=== PATIENT | female | born 1985 | race Hispanic/Latino ===

== ENCOUNTER 2020-03-12 08:30 | Observation (INO) | payer OTHER ==
[2020-03-08 15:16] LABS: BASOPHILS % (AUTO) 0.6 % (0.0-5.0); EOSINOPHILS % (AUTO) 2.3 % (0.0-8.0); HEMATOCRIT 39.3 % (36-48); LYMPHOCYTES % (AUTO) 42.6 % (21.0-51.0); MEAN CORPUSCULAR HGB CONC 33.1 g/dL (32.0-36.0); MEAN CORPUSCULAR VOLUME 81.5 fL (79-99); MONOCYTES % (AUTO) 6.4 % (3.0-13.0); NEUTROPHILS % (AUTO) 47.9 % (40.0-77.0); PLATELET COUNT (AUTO) 220 K/uL (130-400); RED BLOOD CELL COUNT(AUTO) 4.82 MIL/uL (4.00-5.50); RED CELL DISTRIBUTION WIDTH 13.2 % (11.0-15.5); WHITE BLOOD COUNT (AUTO) 5.2 K/uL (4.8-10.8)
[2020-03-11 09:20] VITALS: BP 164/74
[~2020-03-12] VITALS: Ht 167.6 cm; Wt 108.9 kg
[2020-03-12] VITALS (23 sets, daily range): BP systolic 105–141; BP diastolic 51–86
[~2020-03-12 08:30] MED LIST: CEFAZOLIN 3GM /D5W 100ML 100 ML IV SCH; LACTATED RINGERS 1000ML 1,000 ML IV ONE
[2020-03-12] MEDS ORDERED: LIDOCAINE PF 2% 5ML ABBOJECT ONE (09:26)
[2020-03-12] MEDS ORDERED: MIDAZOLAM HCL 1 MG/ML 2ML VIAL ONE (09:27)
[2020-03-12] MEDS ORDERED: PROPOFOL 10 MG/ML 20ML VIAL IV ONE (09:27)
[2020-03-12] MEDS: CEFAZOLIN SODIUM 1 GM VIAL ONE ×2 (09:27→11:02)
[2020-03-12] MEDS ORDERED: FENTANYL CITRATE PF 50 MCG/1 ML 2ML VIAL ONE (09:27)
[2020-03-12] MEDS ORDERED: DEXAMETHASONE SOD PHOSPHATE 4 MG/ML 1ML VIAL ONE (10:47)
[2020-03-12] MEDS ORDERED: SUCCINYLCHOLINE CHLORIDE 20 MG/ML 10 ML VIAL ONE (10:47)
[2020-03-12] MEDS ORDERED: ONDANSETRON HCL 4 MG/2 ML VIAL ONE (10:48)
[2020-03-12] MEDS ORDERED: CALDOLOR 800MG+NS 250ML 250 ML IV ONE (11:21)
[2020-03-12] MEDS ORDERED: MEPERIDINE-PF 25 MG/ML SYG ONE ×2 (12:16→12:25)
[2020-03-12] MEDS ORDERED: MEPERIDINE-PF 75 MG/ML SYG IM PRN (14:00)
[2020-03-12] MEDS ORDERED: BISACODYL 10 MG SUPP.RECT RC PRN (14:00)
[2020-03-12] MEDS ORDERED: ONDANSETRON HCL 4 MG/2 ML VIAL IVP PRN (14:00)
[2020-03-12] MEDS ORDERED: SIMETHICONE 80 MG TAB.CHEW PO PRN (14:00)
[2020-03-12] MEDS ORDERED: ACETAMINOPHEN-CODEINE 300/30MG TAB PO PRN ×2 (14:00)
[2020-03-12] MEDS ORDERED: HYDROCODONE/ACETAMINOPHEN 5/325 MG TAB PO PRN (14:00)
[2020-03-12] MEDS ORDERED: DOCUSATE SODIUM 100 MG CAP PO PRN (14:00)
[2020-03-12] MEDS ORDERED: PROMETHAZINE HCL 25 MG/ML 1ML AMPULE IM PRN ×2 (14:00)
[2020-03-12] MEDS: DEXTROSE 5 %-0.45 % NACL 1,000 ML IV SCH (17:47)
[2020-03-12] MEDS ORDERED: CALDOLOR 800MG+NS 250ML 250 ML IVPB SCH (22:00)
[2020-03-12] MEDS: CALDOLOR 800MG+NS 250ML 250 ML IVPB SCH (22:18)
[2020-03-13 03:40] VITALS: BP 123/56
[2020-03-13] MEDS: DEXTROSE 5 %-0.45 % NACL 1,000 ML IV SCH (03:53)
[2020-03-13] MEDS: CALDOLOR 800MG+NS 250ML 250 ML IVPB SCH (04:49)
[2020-03-13 07:46] VITALS: BP 133/73
[2020-03-13 11:10] VITALS: BP 109/56
[2020-03-13] MEDS ORDERED: IBUPROFEN 800 MG TAB PO PRN (14:00)
== END 2020-03-13 13:40 | disposition home or self-care (01) ==
LOC: DAH 08:30 → DAHIP 08:31 → WSH 13:00
PROVIDERS: ADMIT Obstetrics & Gynecology; ATTEND Obstetrics & Gynecology
DX: N39.3 Stress incontinence (female) (male) (principal); Z20.828 Contact with and (suspected) exposure to other viral communicable diseases; N81.2 Incomplete uterovaginal prolapse
CPT/HCPCS: 36415 ×2; 57220; 57240; 84703; 85025; 86156; 86850 ×2; 86870; 86900 ×2; 86901 ×2; 96361; 96365; 96366 ×2; A4215; A4221; A4222; A4223; A4351; A4510; A4600; A4663; A6260; C9803; G0378 ×26; J0330; J0690 ×2; J1100; J1741 ×4; J2001; J2175 ×2; J2250; J2405; J2704; J3010; J7030; J7120 ×2; U0003